=== PATIENT | male | born 1955 | race Caucasian/White ===

== ENCOUNTER 2020-07-31 15:44 | Emergency (ER) | payer MEDICARE, OTHER, SELFPAY ==
[2020-07-31 15:44] VITALS: BP 169/95; PULSE 107; RESP 16; TEMP 36.2; O2SAT 99; BMI 24.3
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
--- NOTE | 2020-07-31 17:18 | CM.ED ---
Social Work Telephone call from patient guardian, Ravindra. Ravindra not able to obtain contact information for custodial as no one at my office is answering. Ravindra agreeable to this psychotherapist social worker working with Arianna HARRINGTON to attempt to obtain contact information. This psychotherapist social worker collaborating with HRO, Ashley. Ashley able to reach out to contacts and obtain a number of [phone] for the custodial. This psychotherapist social worker provided Ravindra with custodial number. Ravindra plans to call custodial and will call this psychotherapist social worker back. Will continue to follow. Yolanda ALBERT, BIBIANA
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
--- NOTE | 2020-07-31 19:32 | CM.ED ---
Social Work Telephone call received from Kennel Worker as [employer], Britt. Britt communicated with this psych social worker that [facility] is unable to kick patient out as the senior care is the patients primary residence. Britt encouraged this psych social worker to remind [facility] that the senior care is licensed under the Mental Health and Addiction Services board and should be able to manage the patient. Britt reports that patient is to return to the senior care and they have to take him back. This psych social worker inquiring if Britt is able to speak with the senior care. Britt would like this psych social worker to speak with this senior care again and see how it goes and go from there. Telephone call to patient guardian, Ravindra as Ravindra was to speak with the senior care. Ravindra reports to have clarified with the senior care as well that the senior care is licensed by the state and is required to take the patient back. Ravindra reports to have been arguing with the senior care for the past 20min and they are not going to take him back. Ravindra is agreeable to this psych social worker attempting to speak with the senior care again as well. [facility]. Voicemail left. Will continue to follow. Yolanda Foster MSW, BIBIANA
[2020-07-31 19:50] VITALS: BP 178/97; PULSE 96; RESP 18; TEMP 36.6; O2SAT 98
--- NOTE | 2020-07-31 20:07 | CM.ED ---
Social Work Return phone call from Patricia at the [facility]. Patricia and Patricia's spouse, Wilian continue to state we are not taking him back. This social work instructor attempted to communicate information obtained from Britt at [facility] but Wilian/Patricia continue to stand by our word and are not accepting patient back into our home. Patricia reports to have spoken with Ravindra about this matter and Ravindra is okay with this. Telephone call to Ravindra, Ravindra reports to have spoken with Patricia and Wilian and confirms that yeah they are not taking him back. Ravindra reports to be unable to come and pick pulling machine operator patient tonight in the ED but will be able to come and pick pulling machine operator patient tomorrow morning and I will find a place for him. Collaborating with medical team. Patient is able to stay in ED until Ravindra comes to pick pulling machine operator patient tomorrow. PLAN: Ravindra to pick pulling machine operator patient tomorrow morning. Yolanda ALBERT, JERICA-S
[2020-07-31 23:26] VITALS: RESP 16
[2020-08-01 00:19] VITALS: BP 174/84; PULSE 89; RESP 16; O2SAT 98
[2020-08-01] MEDS: Calcium Carbonate 500 MG Tablet 1000 MG PO (02:48)
[2020-08-01 04:00] VITALS: RESP 15
[2020-08-01 06:35] VITALS: BP 123/90; PULSE 80; RESP 15; O2SAT 98
[2020-08-01 08:00] VITALS: RESP 16
[2020-08-01 10:03] VITALS: BP 157/87; PULSE 87; O2SAT 98
--- NOTE | 2020-08-01 10:09 | CM.ED ---
SOCIAL WORK Received voicemail from patient's guardian, Ravindra Trammell. Returned call. Per Ravindra, will arrive at [facility] ER about 10:45am to brass pickler patient. Nursing staff sandrine. Brittany Fajardo MSW, HYPERBARIC TECHNOLOGIST
[2020-08-01 10:45] VITALS: PULSE 71; RESP 18; O2SAT 99
== END 2020-08-01 10:45 | disposition home or self-care (01) ==
PROVIDERS: Emergency Provider Student in an Organized Health Care Education/Training Program
DX: F20.0 Paranoid schizophrenia (principal); E11.9 Type 2 diabetes mellitus without complications
CPT/HCPCS: 99282